=== PATIENT | female | born 1965 | race Caucasian/White ===

== ENCOUNTER 2017-08-08 18:37 | Emergency (ER) | payer MEDICAID, MEDICARE ==
[~2017-08-08] VITALS: Ht 174 cm; Wt 99.1 kg
[2017-08-08] MEDS ORDERED: LIDOCAINE 1%, 20ML SQ ONE (19:30)
[2017-08-08] MEDS ORDERED: DOXYCYCLINE 100MG TABLET PO ONE (20:30)
[2017-08-08] MEDS ORDERED: DOXYCYCLINE 100MG TABLET ONE (20:49)
[2017-08-08 20:54] VITALS: BP 126/75
== END 2017-08-08 20:56 | disposition home or self-care (01) ==
LOC: ED 20:43
DX: N61.1 Abscess of the breast and nipple (principal)
CPT/HCPCS: 10060; 87070; 87077; 87205; 99285

== ENCOUNTER 2017-11-28 17:31 | Emergency (ER) | payer MEDICARE ==
[~2017-11-28] VITALS: Ht 172.7 cm; Wt 103.0 kg
[2017-11-28 18:35] LABS: BASOPHILS # (AUTO) 0.05 x10^3/uL (0-0.1); BASOPHILS % (AUTO) 1 % (0-1); EOSINOPHILS # (AUTO) 0.19 x10^3/uL (0-0.4); EOSINOPHILS % (AUTO) 3 % (1-7); LYMPHOCYTES # (AUTO) 2.41 x10^3/uL (1-3.4); LYMPHOCYTES % (AUTO) 34 % (22-44); MD NO; MEAN CORPUSCULAR HEMOGLOBIN 27.8 pg (27.0-34.8); MEAN CORPUSCULAR HGB CONC 33.4 g/dL (32.4-35.8); MEAN CORPUSCULAR VOLUME 83.3 fL (80-100); MEAN PLATELET VOLUME 8.8 fL (7.4-10.4); MONOCYTES # (AUTO) 0.43 x10^3/uL (0.2-0.8); MONOCYTES % (AUTO) 6 % (2-9); NEUTROPHILS # (AUTO) 4.09 x10^3/uL (1.8-6.8); NEUTROPHILS % (AUTO) 57 % (42-75); PLATELET COUNT 268 x10^3/uL (130-400); RED BLOOD COUNT 4.53 x10^6/uL (3.82-5.3); RED CELL DISTRIBUTION WIDTH 14.9 % (9.6-15.2)
[2017-11-28 18:46] LABS: ANION GAP 7 mmol/L (5-15); CALCIUM 8.7 mg/dL (8.5-10.1); CHLORIDE 114 mmol/L (98-107); CREATININE 1.05 mg/dL (0.55-1.02)
[2017-11-28 18:50] LABS: TROPONIN I < 0.015 ng/mL (0.000-0.045)
[2017-11-28 19:43] VITALS: BP 136/75
== END 2017-11-28 20:31 | disposition home or self-care (01) ==
LOC: ED 20:25
DX: S60.011A Contusion of right thumb without damage to nail, initial encounter (principal); E86.0 Dehydration; R55 Syncope and collapse; W57.XXXA Bitten or stung by nonvenomous insect and other nonvenomous arthropods, initial encounter; Y93.89 Activity, other specified; Y92.89 Other specified places as the place of occurrence of the external cause; Y99.8 Other external cause status
CPT/HCPCS: 36415; 71045; 80048; 82040; 84484; 85025; 93005; 99285

== ENCOUNTER 2019-10-01 19:17 | Emergency (ER) | payer MEDICARE, OTHER ==
[~2019-10-01] VITALS: Ht 172.7 cm; Wt 104.0 kg
[2019-10-01 19:21] VITALS: BP 159/89
[2019-10-01] MEDS ORDERED: METHOCARBAMOL 750 MG TABLET ONE (20:19)
[2019-10-01] MEDS ORDERED: OXYcodone/APAP 5/325MG TABLET ONE (20:19)
[2019-10-01] MEDS ORDERED: METHOCARBAMOL 750 MG TABLET PO ONE (20:30)
[2019-10-01] MEDS ORDERED: OXYcodone/APAP 5/325MG TABLET PO ONE (20:30)
== END 2019-10-01 20:51 | disposition home or self-care (01) ==
LOC: ED 20:00
DX: S16.1XXA Strain of muscle, fascia and tendon at neck level, initial encounter (principal); M47.812 Spondylosis without myelopathy or radiculopathy, cervical region; G89.11 Acute pain due to trauma; Z88.2 Allergy status to sulfonamides; Z88.8 Allergy status to other drugs, medicaments and biological substances; Z88.6 Allergy status to analgesic agent; V43.52XA Car driver injured in collision with other type car in traffic accident, initial encounter; Y93.89 Activity, other specified; Y92.89 Other specified places as the place of occurrence of the external cause; Y99.8 Other external cause status
CPT/HCPCS: 70450; 72125; 99284